=== PATIENT | female | born 1945 | race Caucasian/White ===

== ENCOUNTER 2018-05-30 13:32 | Emergency (ER) | payer MEDICARE, OTHER ==
[~2018-05-30] VITALS: Ht 160 cm; Wt 90.7 kg
[2018-05-30 15:11] LABS: Basophils # (auto) 0 uL; Basophils % (auto) 0.3 % (0.0-2.0); Eosinophils # (auto) 0.2 uL; Eosinophils % (auto) 1.7 % (0.0-7.0); Hematocrit 41.8 % (36.0-46.0); Hemoglobin 14.2 g/dL (12.2-16.2); Lymphocytes # (auto) 1.1 uL; Lymphocytes % (auto) 12.5 % (10.0-50.0); Mean Corpuscular Hemoglobin 30.9 pg (28.0-32.0); Mean Corpuscular Hgb Conc. 33.8 g/dL (32.0-36.0); Mean Corpuscular Volume 91.3 fL (80.0-100.0); Monocytes # (auto) 0.9 uL; Monocytes % (auto) 9.6 % (0.0-12.0); Neutrophils # (auto) 6.8 uL; Neutrophils % (auto) 75.9 % (37.0-80.0); Nucleated Red Blood Cells % 0.2 %; Platelet Count (auto) 304 10^3/uL (140-450); Red Blood Cells 4.59 10^6/uL (4.0-5.20); Red Cell Distribution Width 15.1 % (11.8-14.3); White Blood Cell 8.9 10^3/uL (4.4-10.8)
[2018-05-30 15:25] LABS: Partial Thromboplastin Time 23.6 sec (23.78-33.04); Prothrombin Time 10.7 sec (9.27-12.13)
[2018-05-30 16:17] LABS: Albumin 2.9 g/dL (3.4-5.0); BUN/Creatinine Ratio 19.3; Bilirubin, Total 0.3 mg/dL (0.2-1.0); Calcium 8.7 mg/dL (8.5-10.1); Potassium 4.1 mmol/L (3.5-5.1); Total Protein 6.9 g/dL (6.4-8.2)
[2018-05-30] MEDS ORDERED: LIDOCAINE 1% (LOCAL ANESTH.) PF 5ml SDV ID ONE (18:45)
[2018-05-30 20:54] VITALS: BP 113/57
[2018-05-30] MEDS ORDERED: SODIUM CHLOR 0.9% PF (SALINE LOCK) 10ML VIAL/SYR IV SCH (22:00)
== END 2018-05-30 19:41 | disposition home or self-care (01) ==
LOC: ER 13:32
DX: T82.524A Displacement of infusion catheter, initial encounter (principal); Z45.2 Encounter for adjustment and management of vascular access device; E11.9 Type 2 diabetes mellitus without complications; I10 Essential (primary) hypertension
CPT/HCPCS: 36415; 36569; 71045; 80053; 85025; 85610; 85730; 99285; C1751; J7050

== ENCOUNTER 2019-02-26 05:56 | Inpatient (IN) | payer MEDICARE, OTHER ==
[~2019-02-26] VITALS: Ht 160 cm; Wt 93.6 kg
[~2019-02-26 05:56] MED LIST: ATOR20TA50 PO; CHOL1TAB22 PO; FENO160T8 PO; FURO40TA PO; INSLANTI SC; LACT10SO3 PO; LEVO150T10 PO; LEVO175T31 PO; PANT40TA2 PO; POTA20TA53 PO; TRAZ50TA2 PO
[2019-02-26 06:51] LABS: Hematocrit 41.3 % (36.0-46.0); Hemoglobin 13.5 g/dL (12.2-16.2); Mean Corpuscular Hemoglobin 29.6 pg (28.0-32.0); Mean Corpuscular Hgb Conc. 32.7 g/dL (32.0-36.0); Mean Corpuscular Volume 90.7 fL (80.0-100.0); Platelet Count (auto) 310 10^3/uL (140-450); Red Blood Cells 4.55 10^6/uL (4.0-5.20); Red Cell Distribution Width 15.7 % (11.8-14.3); White Blood Cell 15.8 10^3/uL (4.4-10.8)
[2019-02-26 06:54] LABS: Basophils % (manual) 0 (0.0-2.0); Blast Cells 0; Eosinophils % (manual) 0 (0-7); Myelocytes % 0; Promyelocytes % 0
[2019-02-26 07:00] LABS: Alanine Aminotransferase 51 U/L (13-56); Albumin 3.4 g/dL (3.4-5.0); Anion Gap 10 (5-15); Aspartate Aminotransferase 44 U/L (15-37); BUN/Creatinine Ratio 55.4; Blood Urea Nitrogen 41 mg/dL (7-18); Calcium 9.6 mg/dL (8.5-10.1); Carbon Dioxide 29 mmol/L (21-32); Chloride 97 mmol/L (98-107); GFR African American 99 mL/min; GFR Non-African American 82 mL/min; Glucose 140 mg/dL (74-106); Magnesium 2.2 mg/dL (1.6-2.6); Potassium 3.7 mmol/L (3.5-5.1); Sodium 136 mmol/L (136-145)
[2019-02-26 07:01] LABS: Lactic Acid w/Reflex 2.5 mmol/L (0.4-2.0)
[2019-02-26 07:04] LABS: Alkaline Phosphatase 179 U/L (45-117); Bilirubin, Total 0.6 mg/dL (0.2-1.0); Total Protein 7.1 g/dL (6.4-8.2)
[2019-02-26 08:04] LABS: Band Neutrophils % (manual) 3; Lymphocytes % (manual) 10 (10.0-50.0); Metamyelocytes % 1; Monocytes % (manual) 2 (0-12); Reactive Lymphocytes 2
[2019-02-26] MEDS: PIPERACILLIN-TAZOB 3.375GM 100 ML IV ONE ×2 (08:15→08:50)
[2019-02-26] MEDS ORDERED: SODIUM CHLORIDE 0.9% 1,000 ML IV ONE (08:15)
[2019-02-26 09:15] LABS: Urine Bacteria NONE SEEN /hpf (None Seen); Urine Blood Negative /uL (Negative); Urine Hyaline Cast FEW /lpf (0 - 2); Urine Specific Gravity 1.017 (1.001-1.035); Urine WBC 1 /hpf (0 - 5)
[2019-02-26] MEDS: CHOLECALCIFEROL (VITD3) 1,000 UNIT TAB PO SCH ×2 (10:00→21:51)
[2019-02-26] MEDS ORDERED: PROMETHAZINE HCL 25 MG/ML 1ML IV PRN (10:30)
[2019-02-26] MEDS ORDERED: VANCOMYCIN 1GM/250ML 250 ML IV ONE (10:30)
[2019-02-26] MEDS ORDERED: ACETAMINOPHEN 500 MG TAB PO PRN (10:30)
[2019-02-26] MEDS ORDERED: NITROGLYCERIN 0.4 MG SL TAB SL PRN (10:30)
[2019-02-26] MEDS: methylPREDNISolone SOD SUCC 40 MG/ML VL IV SCH ×2 (10:30→22:21)
[2019-02-26] MEDS ORDERED: ALBUTEROL SULF 2.5 MG/0.5ML(0.5%) NEB SOLN NEB PRN (10:30)
[2019-02-26] MEDS ORDERED: traMADol HCL 50 MG TAB PO PRN ×2 (10:30→11:45)
[2019-02-26] MEDS ORDERED: LACTULOSE 20Gm/30ML SOLN PO PRN (10:30)
[2019-02-26] MEDS ORDERED: MORPHINE SULF INJ 2 MG/ML SYRINGE 1ML IV PRN (10:30)
[2019-02-26] MEDS ORDERED: VANCOMYCIN PER PHARMACY 0 MG IV SCH (10:30)
[2019-02-26] MEDS ORDERED: LORazepam 0.5 MG TAB PO PRN (10:30)
[2019-02-26] MEDS ORDERED: DEXTROSE (50%) 50ML SYRG IV PRN (10:30)
[2019-02-26] MEDS ORDERED: ENALAPRIL MALEATE 2.5 MG TAB PO ONE (11:30)
[2019-02-26] MEDS: InsuLIN REG 1unit/0.01ml Soln (100units/ml) SC SCH ×3 (11:30→22:20)
[2019-02-26] MEDS ORDERED: FUROSEMIDE 40 MG/4 ML VIAL IV ONE (11:30)
[2019-02-26] MEDS ORDERED: CARVEDILOL 3.125 MG TAB PO ONE (11:30)
[2019-02-26] MEDS: ACCU-CHEK COMFORT CURVE STRIP VI SCH ×3 (11:35→21:51)
[2019-02-26] MEDS: ALBUTEROL SULF 2.5 MG/0.5ML(0.5%) NEB SOLN NEB SCH ×2 (11:37→18:20)
[2019-02-26] MEDS: IPRATROPIUM BROM 0.5 MG/2.5ML INH SOL NEB SCH ×2 (11:37→18:20)
[2019-02-26] MEDS: PANTOPRAZOLE 40 MG TAB PO SCH (12:06)
[2019-02-26] MEDS: LEVOTHYROXINE SODIUM 50 MCG TAB PO SCH (12:06)
[2019-02-26 12:14] VITALS: BP 110/67
--- NOTE | 2019-02-26 12:45 | NUR ---
Telemetry admit from ER SHAI RINCON admitted to Telemetry unit after SBAR received. Patient oriented to FARHAN DOYLE, primary RN, unit, room, bed, and unit policies regarding patient care and visiting hours. Patient now on continuous telemetry monitoring, tele box # 8 and telemetry reading on arrival to unit is sinus rhythm. Patient placed on bedside oxygen, weighed by bedscale and encouraged to call if they need something. All questions and concerns addressed, patient verbalized understanding. Bed locked in lowest position with call light in reach. Will continue to monitor.
[2019-02-26 13:32] VITALS: BP_SYST 132; BP_SYST 139; BP_DIAS 70; BP_DIAS 84
[2019-02-26] MEDS: SODIUM CHLOR 0.9% PF (SALINE LOCK) 10ML VIAL/SYR IV SCH ×2 (14:00→21:48)
--- NOTE | 2019-02-26 16:58 | NUR ---
Pt is an alert and oriented female that has been in SNF facility prior to admission and then discharged to home on February 02. Pt and spouse wish to return to [facility] upon discharge from this hospitalization for continued physical therapy. Natali , patient services coordinator for [facility], contacted and all requested medical information faxed. Pt accepted to return to [facility] to room 24A under Dr. Pena. Notification of discharge can be called in to Natali at [phone] and report can be called to [phone] Facility to arrange transport upon discharge. Addendum: 02/26/19 at 1702 by BOBBY GUZMAN Amended: Links added.
[2019-02-26 17:30] VITALS: BP 135/64
--- NOTE | 2019-02-26 19:30 | NUR ---
Opening Shift Note Assumed care of patient, awake and alert X3. Patient thought she was at [facility]. No S/S of distress/SOB on 2L N/C. Denies pain at this time. Pineda patient and draining to gravity. Instructed on POC and to call for assist PRN, will continue to monitor for changes Q1hr and PRN.
[2019-02-26] MEDS: PATIENTS OWN MEDICATION (Trazodone Hcl 50 MG) PO SCH (21:48)
[2019-02-26] MEDS: CARVEDILOL 3.125 MG TAB PO SCH (21:49)
[2019-02-26] MEDS: APIXABAN 2.5 MG TAB PO SCH (21:50)
[2019-02-26] MEDS: ATORVASTATIN 20 MG TAB PO SCH (21:50)
[2019-02-26] MEDS: INSULIN LANTUS (GLARGINE) 1 /0.01ml (100units/ml) SC SCH (22:20)
[2019-02-27 00:17] VITALS: BP 126/75
[2019-02-27] MEDS: ALBUTEROL SULF 2.5 MG/0.5ML(0.5%) NEB SOLN NEB SCH ×4 (05:33→19:30)
[2019-02-27] MEDS: IPRATROPIUM BROM 0.5 MG/2.5ML INH SOL NEB SCH ×4 (05:33→19:30)
[2019-02-27 05:39] VITALS: BP 149/68
[2019-02-27] MEDS: InsuLIN REG 1unit/0.01ml Soln (100units/ml) SC SCH ×4 (06:46→21:37)
[2019-02-27] MEDS: ACCU-CHEK COMFORT CURVE STRIP VI SCH ×4 (06:46→21:38)
[2019-02-27] MEDS: SODIUM CHLOR 0.9% PF (SALINE LOCK) 10ML VIAL/SYR IV SCH ×3 (06:46→21:36)
[2019-02-27] MEDS: INSULIN LANTUS (GLARGINE) 1 /0.01ml (100units/ml) SC SCH ×2 (06:47→21:38)
--- NOTE | 2019-02-27 07:20 | NUR ---
Opening Shift Note Assumed care of patient, awake, with episodes of confusion. No S/S of distress/SOB or pain. Instructed on POC-continue IV antibiotics. Patient/sitter informed to call for assist PRN, will continue to monitor for changes Q1hr and PRN. Sitter at bedside to ensure safety.
[2019-02-27 07:46] LABS: Hematocrit 38.6 % (36.0-46.0); Hemoglobin 12.8 g/dL (12.2-16.2); Mean Corpuscular Hemoglobin 29.8 pg (28.0-32.0); Mean Corpuscular Hgb Conc. 33.2 g/dL (32.0-36.0); Mean Corpuscular Volume 89.8 fL (80.0-100.0); Platelet Count (auto) 276 10^3/uL (140-450); Red Blood Cells 4.29 10^6/uL (4.0-5.20); Red Cell Distribution Width 15.8 % (11.8-14.3); White Blood Cell 15.7 10^3/uL (4.4-10.8)
[2019-02-27 07:51] LABS: Basophils % (manual) 0 (0.0-2.0); Blast Cells 0; Eosinophils % (manual) 0 (0-7); Promyelocytes % 0
[2019-02-27 08:30] VITALS: BP 133/72
[2019-02-27 08:40] LABS: BUN/Creatinine Ratio 46.3; Calcium 8.9 mg/dL (8.5-10.1); Potassium 3.7 mmol/L (3.5-5.1)
[2019-02-27 08:42] LABS: Bilirubin, Total 0.6 mg/dL (0.2-1.0); Total Protein 6.3 g/dL (6.4-8.2)
[2019-02-27] MEDS: LEVOFLOXACIN 500MG 100 ML IV SCH (09:27)
[2019-02-27] MEDS: CARVEDILOL 3.125 MG TAB PO SCH ×2 (09:28→21:36)
[2019-02-27] MEDS: APIXABAN 2.5 MG TAB PO SCH ×2 (09:28→21:36)
[2019-02-27] MEDS: ENALAPRIL MALEATE 2.5 MG TAB PO SCH (09:29)
[2019-02-27] MEDS: PANTOPRAZOLE 40 MG TAB PO SCH (09:29)
[2019-02-27] MEDS: CHOLECALCIFEROL (VITD3) 1,000 UNIT TAB PO SCH ×2 (09:30→21:36)
[2019-02-27] MEDS: methylPREDNISolone SOD SUCC 40 MG/ML VL IV SCH ×2 (09:30→21:35)
[2019-02-27 09:34] LABS: Band Neutrophils % (manual) 1; Lymphocytes % (manual) 3 (10.0-50.0); Metamyelocytes % 2; Monocytes % (manual) 4 (0-12); Myelocytes % 1
[2019-02-27 09:35] LABS: Reactive Lymphocytes 1
[2019-02-27] MEDS: TRICOR PO SCH (10:00)
[2019-02-27] MEDS ORDERED: FUROSEMIDE 40 MG/4 ML VIAL IV SCH ×3 (10:00)
[2019-02-27] MEDS ORDERED: POTASSIUM CHL 20 Meq TABLET PO SCH (10:00)
[2019-02-27] MEDS: VANCOMYCIN 1GM/250ML 250 ML IV SCH (11:19)
[2019-02-27 13:00] VITALS: BP 134/65
[2019-02-27] MEDS: POTASSIUM CHL 20 Meq TABLET PO SCH ×2 (14:07→21:36)
[2019-02-27] MEDS: FLUCONAZOLE 200MG/100ML 100 ML IV SCH (14:07)
--- NOTE | 2019-02-27 16:40 | NUR ---
IV insertion IV access obtained, via clean sterile technique by inserting 22 gauge catheter at right forearm after 2 attempts. IV secured properly. No trauma to site. Patient tolerated well.
[2019-02-27 17:20] VITALS: BP 112/59
--- NOTE | 2019-02-27 19:00 | NUR ---
Closing Note Patient is resting in bed, no complaints of pain, not in distress. Call light within reach and bed in lowest position. is still at bedside with patient. Care endorsed to night RN.
--- NOTE | 2019-02-27 19:00 | NUR ---
OPENING NOTE Received report from day shift RN. Patient is A&O X's 4 with no s/s of distress noted. Educated patient on POC and to use call light when in need of assistance. Patient verbalized understanding. Bed is in lowest/locked position with side rails up X's 2 and call light is within reach of patient. SCD's are applied to lower extremities bilaterally. Feet are elevated and with pillow between knees for comfort/prevent skin breakdown. Bed alarm is on. Patient is receiving 2L O2 via N.C. Will continue to monitor for changes and round hourly/PRN. All patient's questions were answered at this time.
[2019-02-27] MEDS: ATORVASTATIN 20 MG TAB PO SCH (21:35)
[2019-02-27] MEDS: FUROSEMIDE 40 MG/4 ML VIAL IV SCH (21:35)
[2019-02-27] MEDS: PATIENTS OWN MEDICATION (Trazodone Hcl 50 MG) PO SCH (21:37)
[2019-02-27 22:00] VITALS: BP 117/53
--- NOTE | 2019-02-27 23:39 | NUR ---
TURNING Patient refused to be turned at this time. She states that she is comfortable where she is at. Educated patient on benefits of turning. Patient verbalized understanding. Will continue to monitor.
--- NOTE | 2019-02-28 00:27 | NUR ---
Respiratory note: PT SEEN FOR SCHEDULED MED NEB TX AT 0027. PT REFUSED HER TREATMENT AT THIS TIME. WHEN I ENTERED THE ROOM THE PT WAS SLEEPING. I WOKE HER UP AND ASKED IF I COULD DO HER BREATHING TREATMENT. THE PT STATED "NO" AND SHOOK HER HEAD. PT BEGAN TO FALL BACK ASLEEP. TREATMENT NOT GIVEN AT THIS TIME. NO SIGNS OF RESPIRATORY DISTRESS NOTED. HR 71 RR 16 POX 97% ON 3L NASAL CANNULA.
--- NOTE | 2019-02-28 00:43 | NUR ---
TURNING Patient agreed to turn and be repositioned at this time. Patient tolerated it well.
[2019-02-28 05:00] VITALS: BP 124/58
[2019-02-28] MEDS: SODIUM CHLOR 0.9% PF (SALINE LOCK) 10ML VIAL/SYR IV SCH ×3 (06:48→22:31)
[2019-02-28] MEDS: InsuLIN REG 1unit/0.01ml Soln (100units/ml) SC SCH ×4 (06:48→21:47)
[2019-02-28] MEDS: INSULIN LANTUS (GLARGINE) 1 /0.01ml (100units/ml) SC SCH ×2 (06:48→21:48)
[2019-02-28] MEDS: ACCU-CHEK COMFORT CURVE STRIP VI SCH ×4 (06:49→21:48)
[2019-02-28 06:57] LABS: Basophils # (auto) 0 uL; Basophils % (auto) 0.1 % (0.0-2.0); Eosinophils # (auto) 0 uL; Hematocrit 39.4 % (36.0-46.0); Hemoglobin 12.7 g/dL (12.2-16.2); Lymphocytes # (auto) 0.8 uL; Mean Corpuscular Hemoglobin 29.3 pg (28.0-32.0); Mean Corpuscular Hgb Conc. 32.3 g/dL (32.0-36.0); Mean Corpuscular Volume 90.5 fL (80.0-100.0); Monocytes # (auto) 0.7 uL; Monocytes % (auto) 3.2 % (0.0-12.0); Neutrophils % (auto) 92.7 % (37.0-80.0); Platelet Count (auto) 260 10^3/uL (140-450); Red Blood Cells 4.35 10^6/uL (4.0-5.20); Red Cell Distribution Width 15.3 % (11.8-14.3); White Blood Cell 20.5 10^3/uL (4.4-10.8)
[2019-02-28] MEDS: IPRATROPIUM BROM 0.5 MG/2.5ML INH SOL NEB SCH ×4 (07:01→19:25)
[2019-02-28] MEDS: ALBUTEROL SULF 2.5 MG/0.5ML(0.5%) NEB SOLN NEB SCH ×4 (07:01→19:25)
--- NOTE | 2019-02-28 07:07 | NUR ---
END OF SHIFT NOTE Gave report to day shift RN. Patient is resting in bed with no s/s of distress noted. Bed is in lowest/locked position with side rails up X's 2 and call light is within reach of patient. Bed alarm is on. Will endorse care
[2019-02-28 07:09] LABS: Potassium 4.2 mmol/L (3.5-5.1)
[2019-02-28 07:16] LABS: Albumin 2.8 g/dL (3.4-5.0); BUN/Creatinine Ratio 52.6; Bilirubin, Total 0.5 mg/dL (0.2-1.0); Total Protein 6.1 g/dL (6.4-8.2)
--- NOTE | 2019-02-28 07:30 | NUR ---
Opening Shift Note Assumed care of patient, awake and alert. No S/S of distress/SOB or pain. Instructed on POC-continue IV antibiotics, while awaiting for transfer to [facility] tomorrow, per MD. Patient informed to call for assist PRN, will continue to monitor for changes Q1hr and PRN.
[2019-02-28 08:21] VITALS: BP 120/70
[2019-02-28] MEDS: LEVOFLOXACIN 500MG 100 ML IV SCH (08:38)
[2019-02-28] MEDS: TRICOR PO SCH (10:00)
[2019-02-28] MEDS: FUROSEMIDE 40 MG/4 ML VIAL IV SCH ×2 (10:10→21:45)
[2019-02-28] MEDS: methylPREDNISolone SOD SUCC 40 MG/ML VL IV SCH (10:15)
[2019-02-28] MEDS: CHOLECALCIFEROL (VITD3) 1,000 UNIT TAB PO SCH ×2 (10:19→21:47)
[2019-02-28] MEDS: APIXABAN 2.5 MG TAB PO SCH ×2 (10:19→21:46)
[2019-02-28] MEDS: CARVEDILOL 3.125 MG TAB PO SCH ×2 (10:19→21:46)
[2019-02-28] MEDS: PANTOPRAZOLE 40 MG TAB PO SCH (10:19)
[2019-02-28] MEDS: ENALAPRIL MALEATE 2.5 MG TAB PO SCH (10:20)
[2019-02-28] MEDS: FLUCONAZOLE 200MG/100ML 100 ML IV SCH (10:20)
[2019-02-28] MEDS: POTASSIUM CHL 20 Meq TABLET PO SCH ×2 (10:20→21:46)
[2019-02-28] MEDS: VANCOMYCIN 1GM/250ML 250 ML IV SCH (11:16)
[2019-02-28 12:56] VITALS: BP 132/72
[2019-02-28 17:00] VITALS: BP 127/62
--- NOTE | 2019-02-28 17:00 | NUR ---
Requested patient's to bring to the hospital the medication Fenofibrate but per patient's when he came back to the hospital, he stated that patient is not taking this medication at home as he checked patient's home medications and this medication is not at home.
--- NOTE | 2019-02-28 19:00 | NUR ---
OPENING NOTE Received report from day shift RN. Patient is A&O X's 4 with no s/s of distress noted. She is eating dinner. Her is at bedside. Educated patient on POC and to use call light when in need of assistance. Patient verbalized understanding. Bed is in lowest/locked position with side rails up X's 2 and call light is within reach of patient. All questions were answered at this time Will continue to monitor for changes and round hourly/PRN.
--- NOTE | 2019-02-28 19:09 | NUR ---
Closing Note Patient is resting in bed, no complaints of pain, not in distress. Call light within reach and bed in lowest position. is at bedside with patient. Care endorsed to night RN. Possible transfer to [facility] tomorrow.
--- NOTE | 2019-02-28 19:20 | NUR ---
RT NOTE WENT TO GIVE PT 1800 TX PT HAD JUST RECEIVED DINNER EXPLAINED TX WOULD TAKE A LITTLE OVER 5-6 MINS PTS WAS VERY UPSET AND RUDE THAT WIFES MEAL WOULD GET INTERRUPTED JUST FOR A TX EXPLAINED ALL TX'S ARE IMPORTANT FOR CARE AND I WOULD RETURN. STILL ANGRY.
--- NOTE | 2019-02-28 19:29 | NUR ---
RT Informed patient is refusing breathing treatments at this time. 2 attempts to provide treatment was made.
--- NOTE | 2019-02-28 19:35 | NUR ---
RT NOTE WENT A 2ND TIME TO TRY TO GIVE PT 1800 BREATHING TREATMENT PT REFUSED. NURSE NOTIFIED.
[2019-02-28] MEDS: PATIENTS OWN MEDICATION (Trazodone Hcl 50 MG) PO SCH (21:45)
[2019-02-28] MEDS: ATORVASTATIN 20 MG TAB PO SCH (21:46)
[2019-02-28 22:00] VITALS: BP 139/61
--- NOTE | 2019-03-01 00:48 | NUR ---
ROUNDS Patient is watching TV, A&O X's 4 with no s/s of distress. Helped patient be repositioned. Will continue to monitor for changes
--- NOTE | 2019-03-01 04:11 | NUR ---
PATIENT REFUSED VITAL SIGNS Patient refusing vital signs and to be turned at this time. Will continue to educate patient and monitor for changes and round hourly/PRN.
--- NOTE | 2019-03-01 04:43 | NUR ---
PT REFUSED 0500 VITALS X3 RN NOTIFIED
[2019-03-01] MEDS: InsuLIN REG 1unit/0.01ml Soln (100units/ml) SC SCH ×4 (06:36→21:20)
[2019-03-01] MEDS: INSULIN LANTUS (GLARGINE) 1 /0.01ml (100units/ml) SC SCH ×2 (06:37→21:21)
[2019-03-01] MEDS: ACCU-CHEK COMFORT CURVE STRIP VI SCH ×4 (06:37→21:21)
[2019-03-01] MEDS: SODIUM CHLOR 0.9% PF (SALINE LOCK) 10ML VIAL/SYR IV SCH ×3 (06:38→21:18)
--- NOTE | 2019-03-01 06:46 | NUR ---
RT NOTE: NO TX INDICATED AT THIS TIME. NO SIGNS OF RESPIRATORY DISTRESS NOTED. LUNG SOUNDS CLEAR/DIMINISHED T/O. ON 3L NC SPO2 98 HR 78 RR 18. PT AWARE TO CALL IF NEED FOR TX ARISES. WILL CONTINUE TO MONITOR.
[2019-03-01 07:34] LABS: Hematocrit 42.4 % (36.0-46.0); Hemoglobin 13.9 g/dL (12.2-16.2); Mean Corpuscular Hgb Conc. 32.7 g/dL (32.0-36.0); Mean Corpuscular Volume 91.7 fL (80.0-100.0); Platelet Count (auto) 283 10^3/uL (140-450); Red Blood Cells 4.63 10^6/uL (4.0-5.20); Red Cell Distribution Width 15.9 % (11.8-14.3)
[2019-03-01 07:55] LABS: Basophils % (manual) 0 (0.0-2.0); Blast Cells 0; Eosinophils % (manual) 0 (0-7); Metamyelocytes % 0; Myelocytes % 0; Promyelocytes % 0; Reactive Lymphocytes 0
--- NOTE | 2019-03-01 08:24 | NUR ---
Opening Shift Note Assumed care of patient, awake and alert. No S/S of distress/SOB or pain. Instructed on POC and to call for assist PRN, will continue to monitor for changes Q1hr and PRN.
[2019-03-01 08:56] VITALS: BP 116/60
[2019-03-01] MEDS: LEVOFLOXACIN 500MG 100 ML IV SCH (08:57)
[2019-03-01] MEDS: FLUCONAZOLE 200MG/100ML 100 ML IV SCH (08:57)
[2019-03-01] MEDS: CHOLECALCIFEROL (VITD3) 1,000 UNIT TAB PO SCH ×2 (08:57→21:20)
[2019-03-01] MEDS: PANTOPRAZOLE 40 MG TAB PO SCH (08:57)
[2019-03-01] MEDS: APIXABAN 2.5 MG TAB PO SCH ×2 (08:57→21:19)
[2019-03-01] MEDS: POTASSIUM CHL 20 Meq TABLET PO SCH ×2 (08:57→21:19)
[2019-03-01] MEDS: ENALAPRIL MALEATE 2.5 MG TAB PO SCH (08:58)
[2019-03-01] MEDS: TRICOR PO SCH (08:59)
[2019-03-01] MEDS: CARVEDILOL 3.125 MG TAB PO SCH ×2 (08:59→21:19)
[2019-03-01] MEDS: FUROSEMIDE 40 MG/4 ML VIAL IV SCH ×2 (08:59→21:18)
[2019-03-01 09:00] VITALS: BP 141/76
[2019-03-01] MEDS: LEVOTHYROXINE SODIUM 50 MCG TAB PO SCH (09:19)
[2019-03-01] MEDS ORDERED: traMADol HCL 50 MG TAB PO PRN (09:30)
--- NOTE | 2019-03-01 09:30 | NUR ---
Dr. Hung at bedside.
[2019-03-01] MEDS ORDERED: MORPHINE SULF INJ 2 MG/ML SYRINGE 1ML IV PRN (10:00)
[2019-03-01] MEDS ORDERED: methylPREDNISolone SOD SUCC 40 MG/ML VL IV SCH (10:00)
--- NOTE | 2019-03-01 10:41 | NUR ---
CHANGED PATIENTS DRAW SHEET AND GLENIS BECAUSE THEY WERE DIRTY, ROTATED PATIENT TO OTHER SIDE WITH PILLOW. PATIENT STATED IT WAS UNCOMFORTABLE AND SHE WASN'T GONNA STAND FOR IT. EDUCATED THE PATIENT THAT SHE NEEDS TO TURN EVERY FEW HOUSE TO PREVENT SKIN BREAK DOWN AND SHE STATED SHE DID NOT CARE AND TO TAKE THE PILLOW OUT. CHILD WELFARE ASSISTANT AMBER NOTIFIED.
[2019-03-01] MEDS: VANCOMYCIN 1GM/250ML 250 ML IV SCH (10:53)
--- NOTE | 2019-03-01 10:54 | NUR ---
Patient refused IV and wants others to do it, Kell (Charge nurse) notified and will come to insert IV later.
[2019-03-01] MEDS: predniSONE 5 MG TAB PO SCH (10:58)
[2019-03-01 11:09] LABS: Albumin 2.7 g/dL (3.4-5.0); Calcium 8.9 mg/dL (8.5-10.1); Potassium 4.6 mmol/L (3.5-5.1)
[2019-03-01 11:13] LABS: BUN/Creatinine Ratio 61.5; Bilirubin, Total 0.5 mg/dL (0.2-1.0); Total Protein 6.2 g/dL (6.4-8.2)
--- NOTE | 2019-03-01 11:33 | NUR ---
Nutrition Assessment Notes please see attached link for complete assessment Est. Needs ABW [id number] kcal (20-23 kcal/kgBW), 74-81 gms pro (1.0-1.1 gms/kgBW). Will continue to monitor pertinent labs and reassess nutrient need prn Addendum: 03/01/19 at [address] Amended: Links added.
[2019-03-01 11:55] LABS: Band Neutrophils % (manual) 3; Lymphocytes % (manual) 4 (10.0-50.0); Monocytes % (manual) 2 (0-12)
[2019-03-01] MEDS: ALBUTEROL SULF 2.5 MG/0.5ML(0.5%) NEB SOLN NEB SCH ×2 (12:03→19:29)
[2019-03-01] MEDS: IPRATROPIUM BROM 0.5 MG/2.5ML INH SOL NEB SCH ×2 (12:03→19:29)
--- NOTE | 2019-03-01 14:22 | NUR ---
Per Fabian (THOMAS) patient got accepted at [facility].
--- NOTE | 2019-03-01 14:38 | NUR ---
Midline Placement: Patient educated on need for midline placement. All risks and benefits explained and all questions and concerns addresses prior to procedure. 18g/10cm midline inserted via right basilic vein using Ultrasound. Sterile technique utilized. Blood return obtained from the lumen and flushed easily with NS using proper technique. Midline secured with saline lock; biodisc and occlusive dressing applied. Primary RN notified. Midline lot # [id number]. x1 attempt
[2019-03-01 17:00] VITALS: BP 123/65
--- NOTE | 2019-03-01 19:30 | NUR ---
Opening Shift Note Assumed care of patient, awake and alert. No S/S of distress/SOB or pain. Insructed on POC and to callfor assist PRN, will continue to monitor for changes Q1hr and PRN. Visitor at bedside. Fall and safety precautions in place. Call light within reach.
--- NOTE | 2019-03-01 21:15 | NUR ---
BLOOD SUGAR Checked pt's blood sugar at this time, first result was 449. Rechecked and result was 426. Will medicate pt as per insulin protocol (see emar) and will page hospitalist regarding critical high at 2200. Will continue to monitor
[2019-03-01] MEDS: LINEZOLID 600MG TABLET PO SCH (21:19)
[2019-03-01] MEDS: ATORVASTATIN 20 MG TAB PO SCH (21:19)
[2019-03-01 21:58] VITALS: BP 129/68
[2019-03-01] MEDS ORDERED: traZODone HCL 50 MG TAB PO SCH (22:00)
--- NOTE | 2019-03-01 22:00 | NUR ---
HOSPITALIST Paged hospitalist regarding critical blood sugar. Awaiting call back.
--- NOTE | 2019-03-01 22:30 | NUR ---
HOSPITALIST Paged hospitalist again regarding pt's critical blood sugar. Awaiting call back. Will continue to monitor
[2019-03-02] MEDS: ALBUTEROL SULF 2.5 MG/0.5ML(0.5%) NEB SOLN NEB SCH ×4 (00:31→18:08)
[2019-03-02] MEDS: IPRATROPIUM BROM 0.5 MG/2.5ML INH SOL NEB SCH ×4 (00:31→18:08)
[2019-03-02 05:00] VITALS: BP 137/74
[2019-03-02] MEDS: SODIUM CHLOR 0.9% PF (SALINE LOCK) 10ML VIAL/SYR IV SCH ×2 (05:58→12:16)
[2019-03-02] MEDS: INSULIN LANTUS (GLARGINE) 1 /0.01ml (100units/ml) SC SCH (06:14)
[2019-03-02] MEDS: InsuLIN REG 1unit/0.01ml Soln (100units/ml) SC SCH ×3 (06:14→17:00)
[2019-03-02] MEDS: ACCU-CHEK COMFORT CURVE STRIP VI SCH ×3 (06:15→17:00)
[2019-03-02 07:11] LABS: Hematocrit 42.6 % (36.0-46.0); Mean Corpuscular Hemoglobin 29.7 pg (28.0-32.0); Mean Corpuscular Volume 90.1 fL (80.0-100.0); Platelet Count (auto) 248 10^3/uL (140-450); Red Blood Cells 4.73 10^6/uL (4.0-5.20); Red Cell Distribution Width 16.1 % (11.8-14.3); White Blood Cell 20.1 10^3/uL (4.4-10.8)
--- NOTE | 2019-03-02 07:33 | NUR ---
PATIENT IS ALERT AND ORIENTED WITH NO DISTRESS NOTED, RESPIRATIONS ARE UNLABORED, WAS REPOSITIONED IN BED, PHYSICAL ASSESSMENT PERFORMED, SKIN INTACT, AT BEDSIDE, WEARING N/C, DENIES DIFFICULTY BREATHING, PREPARED BREAKFAST TRY. VERBALIZED IF WAS GOING TO [facility] OR [facility].
[2019-03-02 07:39] LABS: BUN/Creatinine Ratio 76.6; Calcium 9.3 mg/dL (8.5-10.1); Potassium 4.5 mmol/L (3.5-5.1)
[2019-03-02 07:49] LABS: Band Neutrophils % (manual) 0; Basophils % (manual) 0 (0.0-2.0); Blast Cells 0; Eosinophils % (manual) 0 (0-7); Metamyelocytes % 0; Myelocytes % 0; Promyelocytes % 0; Reactive Lymphocytes 0
[2019-03-02 09:00] VITALS: BP 126/69
[2019-03-02 09:05] LABS: Lymphocytes % (manual) 8 (10.0-50.0); Monocytes % (manual) 6 (0-12)
[2019-03-02] MEDS ORDERED: FLUCONAZOLE 100 MG TAB PO SCH (10:00)
[2019-03-02] MEDS: TRICOR PO SCH (10:00)
[2019-03-02] MEDS ORDERED: LEVOTHYROXINE SODIUM 50 MCG TAB PO SCH (10:00)
[2019-03-02] MEDS: LEVOFLOXACIN 500MG 100 ML IV SCH (11:04)
[2019-03-02] MEDS: APIXABAN 2.5 MG TAB PO SCH (11:07)
[2019-03-02] MEDS: CHOLECALCIFEROL (VITD3) 1,000 UNIT TAB PO SCH (11:07)
[2019-03-02] MEDS: FUROSEMIDE 40 MG/4 ML VIAL IV SCH (11:07)
[2019-03-02] MEDS: PANTOPRAZOLE 40 MG TAB PO SCH (11:08)
[2019-03-02] MEDS: CARVEDILOL 3.125 MG TAB PO SCH (11:08)
[2019-03-02] MEDS: predniSONE 5 MG TAB PO SCH (11:09)
[2019-03-02] MEDS: POTASSIUM CHL 20 Meq TABLET PO SCH (11:09)
[2019-03-02] MEDS: ENALAPRIL MALEATE 2.5 MG TAB PO SCH (11:10)
[2019-03-02] MEDS: LINEZOLID 600MG TABLET PO SCH (12:14)
[2019-03-02 12:30] VITALS: BP 155/73
--- NOTE | 2019-03-02 14:26 | NUR ---
Pt is an alert and oriented female that was residing at [facility] prior to hospitalization. Pt's spouse Rubens is supportive and involved in her care. Due to pt's decompensated condition per MD she could greatly benefit from acute rehab at [facility]. Pt and spouse verbalize agreeance with acute rehab. Contacted [facility] admissions liasion, and faxed requested medical information. Per Eloisa, medical practice assistant admissions liasion, pt accepted for admission to room [address] Garcia and report should be called to [phone]. Pt will need nonemergent transportation. Per Eloisa ,[facility] can assist in transportation costs if it is a hardship to pt and /or family. Per spouse, Rubens, he can afford $100 towards cost of transport. Notified Eloisa who completed all arrangements with ( [phone]) for a gurney pickup with oxygen at 1800. Spouse informed to followup at [facility] with [employer] in [employer] to pay the $100 towards the transportation. Pt and spouse verbalized understanding and agreeance with the above plan. Addendum: 03/02/19 at 1435 by BOBBY GUZMAN Amended: Links added.
[2019-03-02 17:46] VITALS: BP 106/55
--- NOTE | 2019-03-02 18:49 | NUR ---
i called and gave report to naila/rn accepting nurse at [facility], patient going to room 99, and medicinal plant picker time was to be 1800, after i called with [facility] they verbalized they were running behind and will medicinal plant picker at 2014. i relayed the message to the . iv and tele monitor was removed and intact, patient to be discharged with wayne as ordered.
--- NOTE | 2019-03-02 20:05 | NUR ---
Discharge instructions given as ordered. Encourage to follow up with PMD as instructed. All questions and concerns addressed. Patient verbalized understanding. IV removed with catheter intact, pressure dressing applied by day shift RN. Wayne catheter still in place because patient is to be transferred to [facility] with wayne. Telemetry unit returned to ICU. Patient taken to vehicle via gurney with all personal belongings, accompanied by transport team and family member. No distress noted at time of departure.
[2019-03-03] MEDS ORDERED: LEVOTHYROXINE SODIUM 50 MCG TAB PO SCH (07:00)
== END 2019-03-02 20:05 | DRG 291 ==
LOC: EDBD 05:56 → ER 05:56 → TELE 10:36 → TELE-EAST 12:46
PROVIDERS: ADMIT Internal Medicine; ATTEND Internal Medicine
DX: I13.0 Hypertensive heart and chronic kidney disease with heart failure and stage 1 through stage 4 chronic kidney disease, or unspecified chronic kidney disease (principal); J18.1 Lobar pneumonia, unspecified organism; J96.20 Acute and chronic respiratory failure, unspecified whether with hypoxia or hypercapnia; I50.33 Acute on chronic diastolic (congestive) heart failure; E43 Unspecified severe protein-calorie malnutrition; J90 Pleural effusion, not elsewhere classified; B37.49 Other urogenital candidiasis; E87.2 Acidosis; I48.92 Unspecified atrial flutter; J44.0 Chronic obstructive pulmonary disease with (acute) lower respiratory infection; J98.11 Atelectasis; N17.9 Acute kidney failure, unspecified; E03.9 Hypothyroidism, unspecified; K44.9 Diaphragmatic hernia without obstruction or gangrene; K57.30 Diverticulosis of large intestine without perforation or abscess without bleeding; N18.9 Chronic kidney disease, unspecified; T38.0X5A Adverse effect of glucocorticoids and synthetic analogues, initial encounter; E66.01 Morbid (severe) obesity due to excess calories; E87.6 Hypokalemia; I27.20 Pulmonary hypertension, unspecified; I48.0 Paroxysmal atrial fibrillation; E11.22 Type 2 diabetes mellitus with diabetic chronic kidney disease; I70.8 Atherosclerosis of other arteries; Z80.0 Family history of malignant neoplasm of digestive organs; Z79.899 Other long term (current) drug therapy; Z82.49 Family history of ischemic heart disease and other diseases of the circulatory system; Z90.710 Acquired absence of both cervix and uterus; Z83.3 Family history of diabetes mellitus; Z92.89 Personal history of other medical treatment; Z68.36 Body mass index [BMI] 36.0-36.9, adult; Y92.89 Other specified places as the place of occurrence of the external cause
CPT/HCPCS: 36415; 51702; 71045; 74176; 80048; 80053; 80202; 81001; 82550; 82962; 83605; 83735; 83880; 84484; 85007; 85025; 85027; 85652; 87040; 87081; 87086; 93005; 94640; 94761; 96365; 96366; 96368; 97163; G0378; J1450; J1815; J1956; J2543